=== PATIENT | male | born 1990 | race African-American/Black ===

== ENCOUNTER 2025-02-28 13:47 | Emergency (ER) | payer SELFPAY ==
[2025-02-28] MEDS ORDERED: Amoxicillin/Potassium Clav 875 MG TAB ONE (14:57)
[2025-02-28] MEDS ORDERED: Bacitracin 1 PK ONE (14:57)
[2025-02-28] MEDS ORDERED: Boostrix 0.5 ML (Tdap) VIAL (>/=7 yrs of age) ONE (14:57)
== END 2025-02-28 15:49 | disposition home or self-care (01) ==
LOC: MADERS 13:47
DX: S81.852A Open bite, left lower leg, initial encounter (principal); F17.210 Nicotine dependence, cigarettes, uncomplicated; Z23 Encounter for immunization; W54.0XXA Bitten by dog, initial encounter
CPT/HCPCS: 90471; 90715